=== PATIENT | male | born 1970 | race American Indian/Alaskan Native ===

== ENCOUNTER 2019-06-06 06:04 | Inpatient (IN) | payer OTHER ==
[2019-06-06] MEDS ORDERED: SODIUM CHLORIDE 0.9% 1000 ML 1,000 ML IV SCH (06:45)
[2019-06-06] MEDS ORDERED: BACTERIOSTATIC SODIUM CHLORIDE 0.9% 30 ML VIAL INFILTRATI ONE (06:55)
[2019-06-06] MEDS ORDERED: LIDOCAINE 1%/EPINEPHRINE 1:100,000 VIAL (20 ML) INFILTRATI ONE (07:01)
[2019-06-06] MEDS ORDERED: GELATIN SPONGE SIZE 100 TP ONE ×2 (07:01→09:05)
[2019-06-06] MEDS ORDERED: THROMBIN (RECOMBINANT) 5,000 UNIT VIAL TP ONE (07:02)
[2019-06-06] MEDS ORDERED: BACITRACIN 50,000 UNIT VIAL ONE (07:02)
[2019-06-06] MEDS ORDERED: SODIUM CHLORIDE P/F VIAL 10 ML 10 ML ONE (07:02)
[2019-06-06] MEDS ORDERED: BUPIVACAINE/PF (0.5%) 5 MG/1 ML 30 ML VIAL INFILTRATI ONE (07:04)
[2019-06-06 07:13] LABS: Basophils % (Auto) 0.5 % (0.0-1.8); Eosinophils # (Auto) 0.2 K/mm3 (0.0-0.4); Eosinophils % (Auto) 2.2 % (0.0-4.3); Hematocrit 44.6 % (35.5-45.6); Hemoglobin 14.9 gm/dl (11.8-15.2); Lymphocytes # (Auto) 2.2 K/mm3 (1.2-5.4); Mean Corpuscular HGB Conc 33 % (32-34); Mean Corpuscular Volume 84 fl (84-94); Monocytes # (Auto) 0.8 K/mm3 (0.0-0.8); Monocytes % (Auto) 9.5 % (0.0-7.3); Platelet Count 310 K/mm3 (140-440); Red Blood Count 5.32 M/mm3 (3.65-5.03); Red Cell Distribution Width 13.6 % (13.2-15.2)
[2019-06-06 07:22] LABS: BUN/Creatinine Ratio 12; Blood Urea Nitrogen 13 mg/dL (9-20); Calcium 9.1 mg/dL (8.4-10.2); Hemolysis Index 12
[2019-06-06] MEDS ORDERED: LIDOCAINE MPF (2%) 20 MG/1 ML VIAL 5 ML ONE (07:35)
[2019-06-06] MEDS ORDERED: PROPOFOL 200 MG/20 ML VIAL IV ONE ×4 (07:35→10:35)
[2019-06-06] MEDS ORDERED: fentaNYL 250 MCG/5 ML INJ ONE (07:35)
[2019-06-06] MEDS ORDERED: ROCURONIUM 50 MG/5 ML INJ IV ONE (07:35)
--- NOTE | 2019-06-06 07:35 | Anesthesia Consultation ---
Anesthesia Consult and Med Hx Date of service: 06/06/19 - Airway Anesthetic Teeth Evaluation: Good, Chipped (right upper molar) ROM Head & Neck: Inadequate (mild restricted ROM w/ pain and numbness in shoulders on extension) Mental/Hyoid Distance: Adequate Mallampati Class: Class III Intubation Access Assessment: Possibly Difficult - Pulmonary Exam CTA: Yes - Cardiac Exam Cardiac Exam: RRR - Pre-Operative Health Status ASA Pre-Surgery Classification: ASA3 Proposed Anesthetic Plan: General - Pulmonary Hx Smoking: No Hx Asthma: Yes (symbicort and albuterol prn) Hx Respiratory Symptoms: No Hx Sleep Apnea: Yes (compliant with CPAP) - Cardiovascular System Hx Hypertension: Yes Hx Heart Attack/AMI: No (recent normal cardiac eval, per patient; >4met excercise capacity) Hx Percutaneous Transluminal Coronary Angioplasty (PTCA): No Hx Cardia Arrhythmia: No Hx Heart Murmur: Yes (congenital) - Central Nervous System CVA: No Hx Back Pain: Yes (NECK AND LOW BACK PAIN) Hx Psychiatric Problems: Yes (anxiety/depression) - Gastrointestinal Hx Gastroesophageal Reflux Disease: No - Endocrine Hx Renal Disease: No Hx Liver Disease: Yes (sarcoidosis with liver involvement) Hx Insulin Dependent Diabetes: Yes Hx Thyroid Disease: No - Hematic Hx Anemia: No - Other Systems Hx Obesity: Yes (BMI 33) - Additional Comments Anesthesia Medical History Comments: Hx anesthetic recall with multiple prior surgeries (remembers hearing and/or seeing things during surgery but no pain or discomfort during these instances). Hx sarcoidosis effecting lung, left eye, and liver. B/l upper extremity numbness at baseline. Plan GETA (glidescope), 2nd PIV, and neuromonitoring. Will give albuterol and clonidine in preop.
--- NOTE | 2019-06-06 07:35 | Anesthesia Day of Surgery ---
Anesthesia Day of Surgery - Day of Surgery Patient Examined: Yes Patient H&P Reviewed: Yes Patient is NPO: Yes
[2019-06-06 07:36] LABS: INR 0.92 (0.87-1.13)
[2019-06-06] MEDS ORDERED: MIDAZOLAM 2 MG/2 ML INJ ONE (07:40)
[2019-06-06] MEDS ORDERED: GABAPENTIN 300 MG CAP ONE (07:40)
[2019-06-06] MEDS ORDERED: ceFAZolin/Water 2 GM/20 ML 2 GM/20 ML SYRINGE IV ONE (07:40)
[2019-06-06] MEDS ORDERED: CELECOXIB 200 MG CAP ONE (07:40)
[2019-06-06] MEDS ORDERED: ALBUTEROL 2.5 MG/3 ML NEBU IH ONE (07:41)
[2019-06-06] MEDS ORDERED: PROPOFOL 1,000 MG/100 ML BOTTLE IV ONE (07:49)
[2019-06-06] MEDS ORDERED: KETAMINE 500 MG/5 ML VIAL MDV ONE (07:51)
[2019-06-06] MEDS ORDERED: ALBUTEROL 2.5 MG/3 ML NEBU IH NR (08:00)
[2019-06-06] MEDS ORDERED: GABAPENTIN 300 MG CAP PO NR (08:00)
[2019-06-06] MEDS ORDERED: fentaNYL 100 MCG/2 ML INJ IV PRN (08:00)
[2019-06-06] MEDS ORDERED: ceFAZolin/STERILE WATER 2 GM/20 ML SYRINGE IV NR (08:00)
[2019-06-06] MEDS ORDERED: cloNIDine 0.2 MG TAB PO ONE (08:00)
[2019-06-06] MEDS ORDERED: MIDAZOLAM 2 MG/2 ML INJ IV NR (08:00)
[2019-06-06] MEDS ORDERED: CELECOXIB 200 MG CAP PO NR (08:00)
[2019-06-06] MEDS ORDERED: SODIUM CHLORIDE 0.9% 250ML 250 ML ONE (08:15)
[2019-06-06] MEDS ORDERED: PHENYLEPHRINE/NS 1,000 MCG/10 ML SYRINGE (OR USE) IV ONE ×2 (08:59→10:46)
[2019-06-06] MEDS ORDERED: SUCCINYLCHOLINE CHLORIDE 200 MG/10 ML INJ MDV ONE (09:00)
[2019-06-06] MEDS ORDERED: dexAMETHasone 20 MG/5 ML VIAL ONE (09:00)
[2019-06-06] MEDS ORDERED: SODIUM CHLORIDE 0.9% 250 ML IVPB IV ONE (09:05)
[2019-06-06] MEDS ORDERED: SODIUM CHLORIDE 0.9% P/F 10 ML VIAL IV ONE (09:05)
[2019-06-06] MEDS ORDERED: BACITRACIN 50,000 UNIT VIAL IR ONE (09:05)
[2019-06-06] MEDS ORDERED: SODIUM CHLORIDE 0.9% IRR 1,500 ML BOTTLE IR ONE (09:05)
[2019-06-06] MEDS ORDERED: SODIUM CHLORIDE 0.9% 1000 ML 1,000 ML ONE ×2 (10:34→11:12)
[2019-06-06] MEDS ORDERED: GLYCOPYRROLATE 0.4 MG/2 ML INJ ONE (12:13)
[2019-06-06] MEDS ORDERED: NEOSTIGMINE 10MG/10 ML INJ MDV ONE (12:13)
[2019-06-06] MEDS ORDERED: ONDANSETRON 4 MG/2 ML INJ ONE (12:13)
--- NOTE | 2019-06-06 12:52 | XRay Report ---
INTRAOPERATIVE FLUOROSCOPY: CERVICAL SPINE 2 VIEWS INDICATION / CLINICAL INFORMATION: CERIVCAL STENOSIS. TECHNIQUE: Intraoperative spot images were obtained during the procedure. FINDINGS: Anterior cervical disc fusion devices are noted at C3-4 and C4-5 levels Fluoroscopy Time: 18 second. Fluoroscopy Images: 2. Signer Name: Unruly Kline MD Signed: 06/06/2019 12:47 PM Workstation Name: [id number]
[2019-06-06] MEDS ORDERED: LACTATED RINGERS 1,000 ML IV SCH (13:00)
[2019-06-06] MEDS ORDERED: DEXTROSE 50% IN WATER (25GM) 50 ML SYRINGE IV PRN (13:01)
[2019-06-06] MEDS ORDERED: ONDANSETRON 4 MG/2 ML INJ IV PRN (13:01)
[2019-06-06] MEDS ORDERED: NALOXONE 0.4 MG/1 ML INJ IV PRN (13:01)
[2019-06-06] MEDS ORDERED: ACETAMINOPHEN 325 MG TAB PO PRN (13:01)
[2019-06-06] MEDS ORDERED: HYDROmorphone 1 MG/1 ML INJ IV PRN (13:06)
--- NOTE | 2019-06-06 13:13 | Post Operative Note ---
Pre-op diagnosis: C3-5 herniated discs with myelopathy Post-op diagnosis: same Findings: Severe stenosis at C3-5 with instability Procedure: C3-5 ACDF Anesthesia: GETA Surgeon: RHONDA DARNELL Estimated blood loss: minimal Pathology: none Condition: stable Disposition: PACU
[2019-06-06] MEDS: MORPHINE 2 MG/1 ML INJ IV PRN ×2 (16:05→19:50)
[2019-06-06] MEDS: dexAMETHasone 4 MG/ML VIAL IV SCH (17:51)
[2019-06-06] MEDS: ceFAZolin/NS 1 GM/50 ML 1 GM/50 ML BAG IV SCH (17:53)
[2019-06-06] MEDS: SIMETHICONE 80 MG CHEW TAB PO PRN (20:25)
[2019-06-07] MEDS: ceFAZolin/NS 1 GM/50 ML 1 GM/50 ML BAG IV SCH (00:10)
[2019-06-07] MEDS: dexAMETHasone 4 MG/ML VIAL IV SCH ×3 (00:10→12:32)
[2019-06-07] MEDS: INSULIN LISPRO 100 UNIT/ML SUB-Q SCH ×3 (00:49→12:31)
[2019-06-07] MEDS: MORPHINE 2 MG/1 ML INJ IV PRN ×3 (08:00→18:06)
[2019-06-07] MEDS: SIMETHICONE 80 MG CHEW TAB PO PRN ×2 (08:01→15:13)
--- NOTE | 2019-06-07 11:02 | Post Anesthesia Evaluation ---
- Post Anesthesia Evaluation Patient Participated: Yes (moving all extremities) Airway Patent: Yes Stable Respiratory Function: Yes Nausea/Vomiting: No Temp > 96.8F: Yes Pain Manageable: Yes Adequeate Hydration: Yes Anesthesia Complications: No Other Comments: Late entry from 06/06/19 8232
[2019-06-07] MEDS: oxyCODONE /ACETAMINOPHEN 5-325MG TAB PO PRN (15:13)
--- NOTE | 2019-06-07 15:40 | Progress Note ---
Subjective Date of service: 06/07/19 Principal diagnosis: CSM s/p C3-5 ACDF Interval history: Mahendra seen and evaluated Sitting in chair Tolerated PT c/o sore throat and expected neck pain AFVSS AAOx3 MAEW Inc CDI Drain minimal output Speech clear and fluent. Continue to encourage OOB D/C drain in AM Await assistance with blood sugars and BP mgmt Objective - Vital Sign Vital Signs - 12hr 06/07/19 06/07/19 06/07/19 04:58 06:00 07:49 Temperature 98.8 F 98.8 F Pulse Rate 87 83 Respiratory 20 18 Rate Blood Pressure 154/79 Blood Pressure 174/98 [Left] O2 Sat by Pulse 94 97 95 Oximetry 06/07/19 06/07/19 12:09 12:49 Temperature 98 F Pulse Rate 93 H Respiratory 18 Rate Blood Pressure Blood Pressure 165/89 [Left] O2 Sat by Pulse 95 95 Oximetry - Laboratory Findings CBC and BMP: 06/06/19 07:00 06/06/19 07:00 Abnormal Lab Findings: Abnormal Labs 06/06/19 06/06/19 06/06/19 07:00 07:00 07:13 RBC 5.32 H Pitt % (Auto) 9.5 H Chloride 107.3 H Carbon Dioxide 20 L Glucose 152 H POC Glucose 114 H 06/06/19 06/07/19 06/07/19 21:34 00:52 07:59 RBC Pitt % (Auto) Chloride Carbon Dioxide Glucose POC Glucose 223 H 218 H 172 H 06/07/19 11:29 RBC Pitt % (Auto) Chloride Carbon Dioxide Glucose POC Glucose 196 H
[2019-06-07] MEDS ORDERED: hydrALAZINE 20 MG/1 ML INJ IV PRN ×2 (15:41→16:39)
[2019-06-07] MEDS ORDERED: PHENOL 1.4% 177 ML BOTTLE MM PRN (15:49)
[2019-06-07] MEDS: metFORMIN 500 MG TAB PO SCH (17:21)
[2019-06-07] MEDS: GABAPENTIN 300 MG CAP PO SCH (17:21)
[2019-06-07] MEDS: VALSARTAN 40 MG TAB PO SCH (17:36)
[2019-06-07] MEDS: cloNIDine 0.2 MG TAB PO SCH (21:57)
[2019-06-07] MEDS: METOPROLOL TARTRATE 25 MG TAB PO SCH (21:58)
[2019-06-07] MEDS ORDERED: INSULIN GLARGINE 100 UNITS/ML SUB-Q SCH (22:00)
[2019-06-08] MEDS: GABAPENTIN 300 MG CAP PO SCH ×2 (01:40→10:05)
[2019-06-08] MEDS: oxyCODONE /ACETAMINOPHEN 5-325MG TAB PO PRN ×2 (01:45→09:27)
[2019-06-08] MEDS: MORPHINE 2 MG/1 ML INJ IV PRN (06:27)
[2019-06-08 07:52] VITALS: BP 156/103
[2019-06-08] MEDS: metFORMIN 500 MG TAB PO SCH (07:52)
[2019-06-08] MEDS ORDERED: INSULIN GLARGINE 100 UNITS/ML SUB-Q SCH (08:00)
[2019-06-08] MEDS: VALSARTAN 40 MG TAB PO SCH (09:13)
[2019-06-08] MEDS: METOPROLOL TARTRATE 25 MG TAB PO SCH (09:14)
[2019-06-08] MEDS: cloNIDine 0.2 MG TAB PO SCH (09:14)
[2019-06-08] MEDS ORDERED: amLODIPine 10 MG TAB PO SCH (10:00)
[2019-06-08] MEDS ORDERED: metFORMIN 500 MG TAB PO SCH (10:00)
--- NOTE | 2019-06-08 11:06 | Discharge Summary ---
Providers - Providers Date of Admission: 06/06/19 06:04 Date of discharge: 06/08/19 Attending physician: RHONDA DARNELL MD 06/06/19 13:01 Consult to Physician [CONS] Routine Comment: Consulting Provider: ROMMEL WHITAKER Physician Instructions: Reason For Exam: Assist with postop Blood sugar and BP mgmt please Physical Therapy Evaluation and Treat [CONS] Routine Comment: Reason For Exam: postop cervical fusion ambulation Primary care physician: DENI ELIZABETH Hospitalization Condition: Good Procedures: C3-5 ACDF Disposition: DC-01 TO HOME OR SELFCARE Core Measure Documentation - Palliative Care Palliative Care/ Comfort Measures: Not Applicable - Core Measures Any of the following diagnoses?: none - VTE Discharge Requirements Deep Vein Thrombosis/Pulmonary Embolism Present on Admission: No - Acute MS Discharge Requirements Reason for no aspirin on DC: Surgical contraindication - Heart Failure Discharge Requirements SHARMAINE/ARB for LVSD if EF <40%: Not Applicable - Stroke Discharge Requirements Statin for LDL = or >70 mg/dl on DC: Not Applicable Exam - Physical Exam Narrative exam: AAOx3 MAEW Speech fluent Inc CDI - Constitutional Vitals: Temp Pulse Resp BP Pulse Ox 98.0 F 79 20 156/103 94 06/08/19 07:17 06/08/19 07:17 06/08/19 07:17 06/08/19 07:17 06/08/19 07:17 Plan Plan of Treatment: As directed Follow up with: RHONDA DARNELL MD [Staff Physician] - 7 Days Prescriptions: Acetaminophen [Acetaminophen TAB] 650 mg PO Q4H PRN #30 tablet PRN Reason: Pain MILD(1-3)/Fever >100.5/CAMERON oxyCODONE /ACETAMINOPHEN [Percocet 5/325 mg] 1 tab PO Q4HR PRN #60 tablet PRN Reason: Pain, Moderate (4-6) tiZANidine [Zanaflex 4mg TAB] 4 mg PO PRN PRN #30 PRN Reason: Muscle Spasm
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
== END 2019-06-08 12:57 | disposition home or self-care (01) | DRG 472 ==
LOC: 3A 06:04 → 3B-SURG 13:31
PROVIDERS: ADMIT Neurological Surgery; ATTEND Neurological Surgery
PROC: 0RG20A0 Fusion of 2 or more Cervical Vertebral Joints with Interbody Fusion Device, Anterior Approach, Anterior Column, Open Approach (ICD-10-PCS; principal; 2019-06-06)
PROC: 0RB30ZZ Excision of Cervical Vertebral Disc, Open Approach (ICD-10-PCS; 2019-06-06)
PROC: 00NW0ZZ Release Cervical Spinal Cord, Open Approach (ICD-10-PCS; 2019-06-06)
PROC: 4A11X4G Monitoring of Peripheral Nervous Electrical Activity, Intraoperative, External Approach (ICD-10-PCS; 2019-06-06)
DX: M48.02 Spinal stenosis, cervical region (principal); G99.2 Myelopathy in diseases classified elsewhere; M50.121 Cervical disc disorder at C4-C5 level with radiculopathy; Z88.8 Allergy status to other drugs, medicaments and biological substances; Z91.040 Latex allergy status
CPT/HCPCS: 36415; 72040; 80048; 82962; 85025; 85610; 88304; 94760; G0378; A4649; A9270-GY; C1713; J0330; J0360; J0690; J1100; J1170; J1815; J2250; J2270; J2370; J2405; J2704; J2710; J3010; J7030; J7050; J7120